=== PATIENT | female | born 2000 | race Two or more races ===

== ENCOUNTER 2023-10-21 12:12 | Emergency (ER) | payer OTHER ==
[~2023-10-21] VITALS: Ht 165.1 cm; Wt 56.7 kg
[2023-10-21 15:44] LABS: HEMATOCRIT 41.1 % (36.0-45.00); MEAN CELL VOLUME 91.4 fL (80.00-100.00); MEAN CORPUSCULAR HEMOGLOBIN 31.2 pg (27.00-32.0); MEAN CORPUSCULAR HGB CONC 34.1 g/dl (32.0-36.0); PLATELET COUNT 216 K/uL (150-450); RED CELL DISTRIBUTION WIDTH 13.1 % (11.5-14.5)
[2023-10-21 16:02] LABS: CALCIUM 9.5 mg/dL (8.5-10.1); CREATININE SERUM 0.68 mg/dL (0.55-1.02); GFR 109.22; POTASSIUM 4.1 mEq/L (3.5-5.1)
[2023-10-21 17:02] LABS: URINE APPEARANCE Clear; URINE BILIRRUBIN Negative (NEGATIVE); URINE BLOOD Trace; URINE COLOR Yellow; URINE GLUCOSE Negative (NEGATIVE); URINE LEUKOCYTE Negative; URINE NITRATE Negative; URINE PROTEIN Negative (NEGATIVE); URINE UROBILINOGEN 0.2 E.U./dl
[2023-10-21 17:06] LABS: URINE BACTERIA 972.6 uL (0.0-1933); URINE EPITHELIAL CELLS 58.2 uL (0.0-38.8); URINE RBC 11.9 uL (0.0-20.8); URINE WBC 17.7 uL (0.0-23.2)
[2023-10-21 17:33] LABS: URINE YEAST FEW /hpf
[2023-10-21] MEDS ORDERED: METAMUCIL POWD575 G1 PO (18:20)
[2023-10-21] MEDS ORDERED: COLACE100 MG PO (18:20)
== END 2023-10-21 18:58 | disposition home or self-care (01) ==
LOC: ER 12:13
PROVIDERS: Nurse Practitioner Family
DX: K59.00 Constipation, unspecified (principal)